=== PATIENT | male | born 1995 | race Caucasian/White ===

== ENCOUNTER 2016-06-04 19:55 | Emergency (ER) | payer BC ==
[2016-06-04 20:10] VITALS: RESP 18
--- NOTE | 2016-06-04 20:31 | ED ---
Neck Injury/Pain HPI - General Chief Complaint: Neck Pain/Injury Stated Complaint: Neck Pain Time Seen by Provider: 06/04/16 20:25 Source: patient, RN notes reviewed Mode of arrival: ambulatory Limitations: no limitations - History of Present Illness Initial Comments: 20-year-old male presents emergency Department chief complaint neck pain. Patient states 2 days ago he was at a concert in which somebody landed on his head. Patient states he he has sudden onset of neck pain. Patient states he felt some popping in his neck region. Patient states he has not felt right since then. He states that his boss was concerned about the patient in which he has been having difficulty in concentration and forgetting certain things. Patient states he has noticed this. Patient states she has no headache no blurred vision or focal weakness this time. Denies nausea vomiting. Patient states she's never had any symptoms like this in the past. Patient denies taking any medications for the discomfort. Patient states neck does feel stiff. - Related Data Home Medications Medication Instructions Recorded Confirmed Levothyroxine Sodium [Synthroid] 125 mcg PO DAILY 06/04/16 06/04/16 Allergies Allergy/AdvReac Type Severity Reaction Status Date / Time amoxicillin Allergy Unknown Verified 06/04/16 20:16 Childhood Review of Systems ROS Statement: Those systems with pertinent positive or pertinent negative responses have been documented in the HPI. ROS Other: All systems not noted in ROS Statement are negative. 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 Absent: scleral icterus, conjunctival injection, periorbital swelling ENT exam: Present: normal exam, normal oropharynx, mucous membranes moist, TM's normal bilaterally, normal external ear exam Neck exam: Present: normal inspection, tenderness (Mild cervical paraspinal tenderness), full ROM. Absent: meningismus, lymphadenopathy Respiratory exam: Present: normal lung sounds bilaterally. Absent: respiratory distress, wheezes, rales, rhonchi, stridor Cardiovascular Exam: Present: regular rate, normal rhythm, normal heart sounds. Absent: systolic murmur, diastolic murmur, rubs, gallop, clicks Neurological exam: Present: alert, oriented X3, CN II-XII intact, reflexes normal, other (Finger to nose intact bilaterally without overshooting). Absent : motor sensory deficit Skin exam: Present: warm, dry, intact, normal color. Absent: rash Course Vital Signs 06/04/16 20:05 Temperature 98.1 F Pulse Rate 64 Respiratory 18 Rate Blood Pressure 138/79 O2 Sat by Pulse 98 Oximetry Medical Decision Making - Medical Decision Making 20-year-old male presents emergency department for neck pain. Patient CT does show old injury to C4 lamina. Patient has no point tenderness at this location this was reevaluated multiple times. Patient will be referred to Dr. Torres for further evaluation and follow-up care return parameters were discussed. Patient has no neurological deficits. Disposition Clinical Impression: Neck pain, Head injury Disposition: HOME SELF-CARE Condition: Stable Instructions: Cervical Strain (ED) Additional Instructions: Please return to the Emergency Department if symptoms worsen or any other concerns. Referrals: Ayden Sandoval DO [Primary Care Provider] - 1-2 days Clement Ram DO [Doctor of Osteopathic Medicine] - 1-2 days Time of Disposition: 21:16
--- NOTE | 2016-06-04 21:04 | CT ---
EXAMINATION TYPE: CT brain josé luis wo con DATE OF EXAM: 06/04/2016 8:54 PM COMPARISON: 02/27/2008 HISTORY: Patient states person landed on his head 2 days ago. Confusion and slowed thinking. Risk Assessment Analyst ior neck pain. CT DLP: 1636.00 mGycm Automated exposure control for dose reduction was used. TECHNIQUE: CT scan of the head and cervical spine are performed without contrast. FINDINGS: The ventricles and sulci appear normal. There is no mass effect nor midline shift. There is no sign of intracranial hemorrhage. The calvarium is intact. There is mild straightening of the vertebra. Disc spaces are normal. There is a defect in the lamina of C4 vertebra on the left side. The margins have cortex and this is consistent with an old injury. T he prevertebral soft tissues appear normal. Facet joint spaces are normal. The skull base is intact. IMPRESSION: Negative CT scan of the brain. Brain is unchanged compared to old exam. There is noted mild right max illary sinusitis. There is a lamina defect that appears old of the C4 vertebra on the left side. This could relate to a n old injury. No acute fracture seen.
[2016-06-04 21:31] VITALS: BP 134/81; PULSE 71; TEMP 97.1
== END 2016-06-04 21:31 | disposition home or self-care (01) ==
LOC: EC 19:55
DX: M54.2 Cervicalgia (principal); S09.90XA Unspecified injury of head, initial encounter; W50.0XXA Accidental hit or strike by another person, initial encounter; Y92.252 Music hall as the place of occurrence of the external cause; Z88.0 Allergy status to penicillin; Z79.899 Other long term (current) drug therapy; E05.00 Thyrotoxicosis with diffuse goiter without thyrotoxic crisis or storm
CPT/HCPCS: 70450; 72125; 99283

== ENCOUNTER → 2017-08-15 | Outpatient (CLI) | payer BC ==
--- NOTE | 2017-08-15 15:39 | NM ---
EXAMINATION TYPE: NM parathyroid w/spect DATE OF EXAM: 08/15/2017 COMPARISON: CT cervical spine June 04, 2016. HISTORY: Unspecified hyperparathyroidism per order. TECHNIQUE: Following administration of 25.2 mCi Tc99m Sestamibi. Anterior projection images of the neck and ches t were obtained 10 minutes and 3 hours post injection. SPECT images of the neck and chest were obtai marky and reconstructed in three axes. FINDINGS: Initial images show poor uptake at level of thyroid bed, there is poor visualization of normal-appear ing thyroid on prior CT. There is small focus of uptake left neck with suspected minimal thyroid tiss ue at this level axial image [address] Delayed images show no suspicious focus of persistent radiotracer uptake to suggest parathyroid adeno ma. Normal uptake: There is physiological tracer uptake in the salivary glands. IMPRESSION: No convincing evidence for mediastinal uptake to suggest mediastinal parathyroid adenoma. Minimal lef t-sided thyroid tissue, correlate clinically.
== END | disposition home or self-care (01) ==
LOC: RADNMMAIN 11:21
PROVIDERS: ATTEND Family Medicine
DX: E21.3 Hyperparathyroidism, unspecified (principal)
CPT/HCPCS: 78071; A9500